=== PATIENT | female | born 1980 | race Caucasian/White ===

== ENCOUNTER 2017-04-22 13:26 | Emergency (ER) | payer SELFPAY ==
[~2017-04-22] VITALS: Ht 167.6 cm; Wt 81.8 kg
[~2017-04-22 13:26] MED LIST: CLEOCIN HC150 MG/CAP PO; NAPROSYN500 MG PO; NORCO 325 MG-51 TAB PO; PERCOCET 325 MG1 TA2 PO; ZOFRAN 4MG T4 MG/TAB PO
[2017-04-22 13:31] VITALS: TEMP 99.3
[2017-04-22] MEDS ORDERED: AMOXICILLIN 8751 TAB PO (13:57)
[2017-04-22 15:17] VITALS: PULSE 77
[2017-04-22 16:11] LABS: BASO % 0.3 % (0.0-2.0); EOS # 0.1 (0.0-0.7); GRAN % 69.3 % (42.2-75.2); HEMOGLOBIN 12.9 g/dl (12.5-16.0); LYMPH % 23.3 % (20.0-51.0); MEAN CELL VOLUME 100 fl (80.0-100.0); MEAN CORPUSCULAR HEMOGLOBIN 34 pg (27.0-31.0); MEAN CORPUSCULAR HGB CONC 34 g/dl (33.0-37.0); MEAN PLATELET VOLUME 10.5 fl (7.4-10.4); MONO # 0.5 (0.1-0.6); MONO % 5.9 % (1.7-9.3); PLATELET COUNT 211 K/mm3 (130-400); RED BLOOD COUNT 3.79 M/mm3 (4.10-5.30); WHITE BLOOD COUNT 8.6 K/mm3 (4.8-10.8)
[2017-04-22 16:27] LABS: ALBUMIN 4.3 gm/dL (3.5-5.0); BILIRUBIN,TOTAL 0.5 mg/dL (0.0-1.0); CALCIUM 9.2 mg/dL (8.4-10.2); CREATININE, serum 0.76 mg/dL (0.52-1.25); POTASSIUM 3.9 mmol/L (3.4-5.0); TOTAL PROTEIN 7.5 gm/dL (6.4-8.2)
[2017-04-22 16:40] VITALS: BP 189/102
[2017-04-22] MEDS ORDERED: NORVASC 5MG5 MG/TAB PO (16:42)
== END 2017-04-22 16:51 | disposition home or self-care (01) ==
LOC: COL.ER 13:26
PROVIDERS: Nurse Practitioner Primary Care
DX: K04.7 Periapical abscess without sinus (principal); K02.9 Dental caries, unspecified; R03.0 Elevated blood-pressure reading, without diagnosis of hypertension; F17.210 Nicotine dependence, cigarettes, uncomplicated

== ENCOUNTER → 2019-03-31 | Outpatient (CLI) | payer SELFPAY ==
[~2019-03-31] MED LIST changes: +AMOXICILLIN 8751 TAB PO; +NORVASC 5MG5 MG/TAB PO
== END ==
LOC: COL.RAD 09:59 → COL.VAS 10:30
DX: I10 Essential (primary) hypertension (principal)